=== PATIENT | female | born 1975 | race Caucasian/White ===

== ENCOUNTER → 2017-11-19 | Emergency (ER) | payer OTHER ==
[~2017-11-19] VITALS: Ht 157.5 cm; Wt 104.3 kg
[~2017-11-19] MED LIST: LEVSIN/SL0.125 MG PO; PEPCID40 MG PO; VASOTEC20 MG PO; ZOFRAN8 MG PO
== END | disposition home or self-care (01) ==
LOC: ER 19:06
DX: K29.70 Gastritis, unspecified, without bleeding (principal); R10.84 Generalized abdominal pain

== ENCOUNTER → 2017-12-17 | Emergency (ER) | payer OTHER ==
[~2017-12-17] VITALS: Ht 157.5 cm; Wt 104.8 kg
== END | disposition left against medical advice (07) ==
LOC: ER 23:06
DX: R51 Headache (principal)

== ENCOUNTER 2019-07-28 05:33 | Emergency (ER) | payer OTHER ==
[~2019-07-28] VITALS: Ht 157.5 cm; Wt 101.2 kg
[2019-07-28] MEDS ORDERED: NORVASC2.5 M1 PO (06:36)
[2019-07-28] MEDS ORDERED: KETO10TA2 PO (08:26)
[2019-07-28] MEDS ORDERED: NORFLEX100MG PO (08:26)
== END 2019-07-28 08:54 ==
LOC: ER 05:33
DX: M54.2 Cervicalgia (principal); M25.512 Pain in left shoulder; M25.511 Pain in right shoulder

== ENCOUNTER 2021-06-12 14:38 | Outpatient (CLI) | payer OTHER ==
[~2021-06-12 14:38] MED LIST changes: +KETO10TA2 PO; +NORFLEX100MG PO; +NORVASC2.5 M1 PO
[2021-07-25] MEDS ORDERED: PEPCID40 MG (03:21)
[2021-07-25] MEDS ORDERED: NASAL MIST126 ML (03:22)
== END 2021-06-12 14:42 | disposition home or self-care (01) ==
LOC: RAD 14:38
PROVIDERS: ATTEND Physical Medicine & Rehabilitation
DX: M25.511 Pain in right shoulder (principal); M54.2 Cervicalgia

== ENCOUNTER 2021-06-18 13:24 | Outpatient (CLI) | payer OTHER ==
[2021-07-25] MEDS ORDERED: PEPCID40 MG (03:21)
[2021-07-25] MEDS ORDERED: NASAL MIST126 ML (03:22)
== END 2021-06-18 13:36 | disposition home or self-care (01) ==
LOC: SONOGRAMA 13:24 → MAMO-SONO 13:45
PROVIDERS: ATTEND Physical Medicine & Rehabilitation
DX: M25.511 Pain in right shoulder (principal); M75.111 Incomplete rotator cuff tear or rupture of right shoulder, not specified as traumatic

== ENCOUNTER 2021-07-12 21:34 | Emergency (ER) | payer OTHER ==
[~2021-07-12] VITALS: Ht 157.5 cm; Wt 105.7 kg
[2021-07-13] MEDS ORDERED: ACETAMINOPHEN650 M2 PO (00:58)
[2021-07-13] MEDS ORDERED: NORFLEX100MG PO (00:58)
[2021-07-25] MEDS ORDERED: PEPCID40 MG (03:21)
[2021-07-25] MEDS ORDERED: NASAL MIST126 ML (03:22)
== END 2021-07-13 01:26 | disposition home or self-care (01) ==
LOC: ER 21:34
DX: J06.9 Acute upper respiratory infection, unspecified (principal); R07.89 Other chest pain; R51.9 Headache, unspecified; R00.0 Tachycardia, unspecified; Z03.818 Encounter for observation for suspected exposure to other biological agents ruled out

== ENCOUNTER → 2021-07-25 | Emergency (ER) | payer OTHER ==
[~2021-07-25] VITALS: Ht 157.5 cm; Wt 106.1 kg
[~2021-07-25] MED LIST changes: +ACETAMINOPHEN650 M2 PO; +NASAL MIST126 ML; +PEPCID40 MG
== END | disposition left against medical advice (07) ==
LOC: ER 03:16
DX: Z53.20 Procedure and treatment not carried out because of patient's decision for unspecified reasons (principal)

== ENCOUNTER 2024-06-27 07:35 | Emergency (ER) | payer OTHER ==
[~2024-06-27] VITALS: Ht 157.5 cm; Wt 102.1 kg
[~2024-06-27 07:35] MED LIST changes: +IRBESARTAN150 MG PO
[2024-06-27] MEDS ORDERED: IPRATROPIUM/ALBUTEROL SULFATE 3 ML AMPUL.NEB IH ONE ×2 (09:45→10:21)
[2024-06-27] MEDS ORDERED: SINGULAIR10 MG PO (11:37)
[2024-06-27] MEDS ORDERED: IPRAT-ALBUT 0.5-3 ML IH (11:37)
[2024-06-27] MEDS ORDERED: VENTOLIN HFA18 GM IH (11:37)
== END 2024-06-27 12:49 | disposition home or self-care (01) ==
LOC: ER 07:35
DX: J45.901 Unspecified asthma with (acute) exacerbation (principal); I10 Essential (primary) hypertension; Z88.0 Allergy status to penicillin

== ENCOUNTER 2025-06-06 11:42 | Emergency (ER) | payer OTHER ==
[~2025-06-06] VITALS: Ht 157.5 cm; Wt 108.9 kg
[~2025-06-06 11:42] MED LIST changes: +IPRAT-ALBUT 0.5-3 ML IH; +SINGULAIR10 MG PO; +VENTOLIN HFA18 GM IH
[2025-06-06] MEDS ORDERED: KETOROLAC TROMETHAMINE 30 MG VIAL IM ONE (12:00)
[2025-06-06] MEDS ORDERED: KETOROLAC TROMETHAMINE 30 MG VIAL ONE (12:23)
[2025-06-06] MEDS ORDERED: NORFLEX100MG PO (14:39)
== END 2025-06-06 15:07 | disposition home or self-care (01) ==
LOC: ER 11:42
DX: S93.402A Sprain of unspecified ligament of left ankle, initial encounter (principal); S80.02XA Contusion of left knee, initial encounter; S80.01XA Contusion of right knee, initial encounter; W18.39XA Other fall on same level, initial encounter; Y93.89 Activity, other specified; Y92.89 Other specified places as the place of occurrence of the external cause; Y99.9 Unspecified external cause status; I10 Essential (primary) hypertension; Z88.0 Allergy status to penicillin; Z87.09 Personal history of other diseases of the respiratory system